=== PATIENT | female | born 1995 | race Caucasian/White ===

== ENCOUNTER → 2020-09-21 09:46 | Outpatient (CLI) | payer BC, SELFPAY ==
--- NOTE | ~2020-09-21 | XR_ITS ---
EXAMINATION: XR thoracic spine 2V EXAM DATE: 09/21/2020 10:24 INDICATION: Scoliosis . TECHNIQUE: Frontal and lateral projections of the thoracic spine as well as lateral swimmers projecti on of the upper thoracic spine for interpretation. Comparison is made to prior examination from 011. FINDINGS: There is 25 degrees of mid thoracic dextroscoliosis, measured between the T3-T11 vertebral bodies. This has increased from the 18 degrees present in 2010. 12 rib-bearing thoracic vertebral bod ies. Paraspinal soft tissue is unremarkable. Vertebral body and disc heights are well-maintained. The vertebral bodies are aligned in the AP dimension. IMPRESSION: 1. Mild to moderate mid thoracic dextroscoliosis. Reviewed, dictated and finalized at location A.
--- NOTE | ~2020-09-21 | XR_ITS ---
EXAMINATION: XR cervical spine 4-5V EXAM DATE: 09/21/2020 10:23 INDICATION: Scoliosis, back pain. TECHNIQUE: Cervical spine frontal, lateral, lateral swimmers, and open-mouth odontoid projections. There is no prior study for comparison. FINDINGS: There is mild cervicothoracic levoscoliosis, compensatory for the thoracic scoliosis. No ap preciable arthropathy. Straightening of normal cervical lordosis could be positional or spasm. There is no evidence of acute cervical fracture. The odontoid process is intact. Pre-dens space is beverley l. Prevertebral soft tissue is normal. There are no soft tissue abnormalities identified. Vertebra l body and disc heights are well-maintained. The vertebral bodies are aligned. IMPRESSION: 1. Mild cervicothoracic levoscoliosis. 2. Cervical straightening. Reviewed, dictated and finalized at location A.
== END ==
PROVIDERS: PCP Physician Assistant; Visit Provider Physician Assistant
DX: M41.9 Scoliosis, unspecified (principal)
CPT/HCPCS: 72050; 72070